=== PATIENT | female | born 1995 | race American Indian/Alaskan Native ===

== ENCOUNTER 2021-02-02 13:17 | Day surgery (SDC) | payer BC ==
--- NOTE | 2021-01-29 14:10 | Anesthesia Consultation ---
Anesthesia Consult and Med Hx Date of service: 02/02/21 - Airway Anesthetic Teeth Evaluation: Good ROM Head & Neck: Adequate Mental/Hyoid Distance: Adequate Mallampati Class: Class II - Pre-Operative Health Status ASA Pre-Surgery Classification: ASA2 Proposed Anesthetic Plan: General - Pulmonary Hx Asthma: Yes (Recently used inhalers. 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 Consider avoiding propofol
[2021-02-02] MEDS: MIDAZOLAM 2 MG/2 ML INJ IV PRN ×2 (12:20→13:28)
--- NOTE | 2021-02-02 12:50 | Anesthesia Day of Surgery ---
Anesthesia Day of Surgery - Day of Surgery Patient Examined: Yes Patient H&P Reviewed: Yes Patient is NPO: Yes
[~2021-02-02 13:17] MED LIST: ACETAMINOPHEN 500 MG TAB PO ONE; CELECOXIB 200 MG CAP PO NR; HYDROmorphone 1 MG/1 ML INJ IV PRN; LACTATED RINGERS 1,000 ML IV SCH; MAGNESIUM OXIDE 400 MG TAB PO ONE; MIDAZOLAM 2 MG/2 ML INJ IV NR; MIDAZOLAM 2 MG/2 ML INJ ONE; ONDANSETRON 4 MG/2 ML INJ IV PRN; SCOPOLAMINE TRANSDERMAL PATCH 72 HR TD NR; ceFAZolin/Water 2 GM/20 ML 2 GM/20 ML SYRINGE IV NR; oxyCODONE /ACETAMINOPHEN 5-325MG TAB PO PRN
[2021-02-02] MEDS ORDERED: BUPIVACAINE/PF (0.5%) 5 MG/1 ML 30 ML VIAL INFILTRATI ONE ×3 (13:22→15:59)
[2021-02-02] MEDS ORDERED: BUPIVACAINE/PF (0.5%) 5 MG/1 ML 10 ML VIAL INFILTRATI ONE (13:22)
[2021-02-02] MEDS ORDERED: ceFAZolin 1 GM VIAL ONE (13:23)
[2021-02-02] MEDS ORDERED: EPINEPHrine/PF 1 MG/1 ML INJ ONE ×2 (13:23→13:27)
[2021-02-02] MEDS ORDERED: METHYLENE BLUE 50 MG/10 ML AMP ONE (13:23)
[2021-02-02] MEDS ORDERED: SODIUM CHLORIDE 0.9% 250ML 250 ML ONE (13:27)
[2021-02-02] MEDS ORDERED: LIDOCAINE 1%/EPINEPHRINE 1:100,000 VIAL (20 ML) INFILTRATI ONE (13:27)
[2021-02-02] MEDS ORDERED: LIDOCAINE (1%) 10 MG/1 ML VIAL 20 ML MDV ONE (13:33)
[2021-02-02] MEDS ORDERED: KETAMINE/STERILE WATER 50 MG/ML SYRINGE ONE (13:44)
[2021-02-02] MEDS ORDERED: LIDOCAINE MPF (2%) 20 MG/1 ML VIAL 5 ML ONE (14:30)
[2021-02-02] MEDS ORDERED: ETOMIDATE 20 MG/10 ML INJ IV ONE (14:30)
[2021-02-02] MEDS ORDERED: dexAMETHasone 20 MG/5 ML VIAL ONE (14:45)
[2021-02-02] MEDS ORDERED: ONDANSETRON 4 MG/2 ML INJ ONE (14:45)
[2021-02-02] MEDS ORDERED: KETOROLAC 30 MG/1 ML INJ ONE (14:45)
[2021-02-02] MEDS ORDERED: fentaNYL 100 MCG/2 ML INJ ONE (14:52)
[2021-02-02] MEDS ORDERED: SODIUM CHLORIDE 0.9% IRR 1,500 ML BOTTLE IR ONE (15:39)
[2021-02-02] MEDS ORDERED: SODIUM CHLORIDE 0.9% 250 ML IVPB IV ONE (16:00)
[2021-02-02] MEDS ORDERED: LIDOCAINE (1%) 10 MG/1 ML VIAL 20 ML MDV INFILTRATI ONE (16:00)
[2021-02-02] MEDS ORDERED: METHYLENE BLUE 50 MG/10 ML AMP IV ONE (16:39)
[2021-02-02] MEDS ORDERED: EPINEPHrine/PF 1 MG/1 ML INJ IV ONE (16:55)
[2021-02-02] MEDS ORDERED: SODIUM CHLORIDE 0.9% 1000 ML 2,000 ML ONE (17:47)
--- NOTE | 2021-02-02 17:56 | Short Stay Summary ---
Short Stay Documentation Date of service: 02/02/21 - Allergies and Medications Current Medications: Allergies Beef Containing Products Allergy (Verified 02/01/21 12:08) Anaphylaxis egg Allergy (Verified 02/01/21 12:08) Anaphylaxis peanut Allergy (Verified 02/01/21 12:08) Anaphylaxis Pork/Porcine Containing Products Allergy (Verified 02/01/21 12:08) Anaphylaxis tree nut Allergy (Verified 02/01/21 12:08) Anaphylaxis chicken Allergy (Uncoded 01/28/21 14:19) Anaphylaxis dairy Allergy (Uncoded 01/28/21 14:19) Anaphylaxis seafood Allergy (Uncoded 01/28/21 14:19) Anaphylaxis Home Medications Medication Instructions Recorded Confirmed Last Taken Type Albuterol Mdi (or & Nicu Only) 2 puff PO Q4HR PRN 01/28/21 01/28/21 02/01/21 20:00 History [ProAir HFA Inhaler] Budesonide/Formoterol Fumarate 1 puff IH HS 01/28/21 01/28/21 02/01/21 20:00 History [Symbicort 160-4.5 Mcg Inhaler] Cetirizine HCl [ZyrTEC 10mg cap] 10 mg PO DAILY 01/28/21 01/28/21 02/01/21 20:00 History Montelukast [Singulair] 10 mg PO QPM 01/28/21 01/28/21 02/01/21 20:00 History Scopolamine [Transderm-Scop] 1 each TD PREOP patch 02/02/21 Unknown Rx Active Medications Celecoxib (Celecoxib 200 Mg Cap) 400 mg PO PREOP NR Stop: 02/02/21 23:59 Last Admin: 02/02/21 12:15 Dose: 400 mg Documented by: Hydromorphone HCl (Hydromorphone 1 Mg/1 Ml Inj) 0.5 mg IV Q10MIN PRN PRN Reason: Pain , Severe (7-10) Stop: 02/02/21 23:59 Cefazolin Sodium (Ancef/Sterile Water 2 Gm/20 Ml) 2 gm in 20 mls @ 80 mls/hr IV PREOP NR; Protocol Stop: 02/02/21 23:59 Lactated Ringer's (Lactated Ringers) 1,000 mls @ 125 mls/hr IV DIRECT GERARD Last Admin: 02/02/21 12:10 Dose: 125 mls/hr Documented by: Midazolam HCl (Midazolam 2 Mg/2 Ml Inj) 2 mg IV ONCE PRN PRN Reason: Anxiety Stop: 02/02/21 23:59 Last Admin: 02/02/21 13:28 Dose: 2 mg Documented by: Ondansetron HCl (Ondansetron 4 Mg/2 Ml Inj) 4 mg IV ONCE PRN PRN Reason: Nausea And Vomiting Stop: 02/02/21 23:59 Oxycodone/Acetaminophen (Oxycodone /Acetaminophen 5-325mg Tab) 1 tab PO ONCE PRN PRN Reason: Pain, Moderate (4-6) Scopolamine (Scopolamine Transdermal Patch 72 Hr) 1 each TD PREOP NR Stop: 02/02/21 20:00 Last Admin: 02/02/21 12:00 Dose: 1 each Documented by: - Brief post op/procedure progress note Date of procedure: 02/02/21 Pre-op diagnosis: Bilateral breast hypertropy Procedure: Bilateral Reduction Mammoplasty, Inferior Pedicle. No vertical scar technique Anesthesia: GETA Findings: Right breast 900 grams removed Left breast 880 grams removed Surgeon: ТАТЬЯНА CÁRDENAS (Dr. Justin as dental ceramist assistant) Estimated blood loss: 50-100ml Pathology: list (Right and Left breast tissue) Specimen disposition: to lab Condition: stable - Hospital course Hospital course: Discharge to home Short Stay Discharge Plan Follow up with: DANIELLA GLASGOW MD [Primary Care Provider] - 7 Days ТАТЬЯНА CÁRDENAS MD [Staff Physician] - 7 Days
--- NOTE | 2021-02-02 18:09 | Operative Report ---
Operative Report Operative Report: Date of procedure: February 02, 2021 Pre-operative diagnosis: Bilateral breast hypertrophy Post-operative diagnosis: Same Procedure name(s): Bilateral reduction mammoplasty with inferior pedicle technique and no vertical scar technique Surgeon: Yvon White M.D. Peanut Butter Maker: Dr. Justin Anesthesia: General EBL: 100 mL Specimen: Bilateral breast tissue Findings: Right breast 900 g removed with good vascularity to the pedicle. left breast 880 g removed with good vascularity to the pedicle Procedure: Before the surgery the patient was marked. She was sat upright. The sternal notch was marked. The left and right midclavicular ends were marked. The meridian was drawn from the midclavicular point through the left nipple. The submammary folds were marked. The submammary fold level was transposed onto the anterior surface of the breast and the new nipple positions were marked on the meridian. The new nipple position was marked as point A. Point B was marked 7 cm below point A. Point C was marked 7.5 cm from point A in the lower inner quadrant. A modified ellipse was made to include the submammary fold and points B & C. She was placed supine. An 11 cm wide inferior pedicles were designed. She was set upright and in the wisdom were judged for position and symmetry. She was taken to the operating room placed in supine position. She underwent smooth induction under general anesthesia. Arms were abducted 90 and placed on boards. Sequential compression devices were placed and a bear hugger warming device was placed on the lower body. The breasts were infiltrated with local anesthetic as described in the intraoperative nurse's notes. She was prepped and draped in usual sterile fashion. A 42 mm cookie-cutter was impressed upon the right areola. The lines were scored. The inferior pedicle was de-epithelialized. The medial and lateral dermal glandular triangles were excised. The superior breast flap was elevated. It was thin from deep to superficial leaving a 1-1/2 inch thick breast flap. Hemostasis was obtained with electrocautery. Construction vero were placed. The incision was closed in layers with 0 Vicryl superficial fascial system closure. The skin was closed with 3-0 Vicryl running intradermal sutures followed by 3-0 Monocryl running subcuticular stitch. The new areolar window was marked so the 6 o'clock position was 5 cm from the submammary fold along the meridian. She is sat upright to guest services lead for position and symmetry. She is placed supine. The areolar window was excised. The nipple was brought through the opening. It was noted to be vascular. It was sutured with 3-0 Vicryl buried interrupted sutures at the four cardinal points, followed by 3-0 Vicryl running intradermal sutures followed by 3-0 Monocryl running subcuticular stitch. Attention was turned to the left breast mound and the procedure was repeated in a similar fashion. A total of 900 grams were removed from the right breast and 880 grams were removed from the left breast. Aquacell dressings were applied. A tube top was place. Patient tolerated procedure well. She was awakened and taken to recovery room in satisfactory condition.
[2021-02-02 18:54] VITALS: BP 110/60
== END 2021-02-02 13:18 | disposition home or self-care (01) ==
LOC: OR 13:17
PROVIDERS: ATTEND Plastic Surgery
DX: N62 Hypertrophy of breast (principal); Z20.822 Contact with and (suspected) exposure to COVID-19; G43.909 Migraine, unspecified, not intractable, without status migrainosus; J45.909 Unspecified asthma, uncomplicated; K21.9 Gastro-esophageal reflux disease without esophagitis; Z88.8 Allergy status to other drugs, medicaments and biological substances; Z91.013 Allergy to seafood; Z91.010 Allergy to peanuts; Z79.899 Other long term (current) drug therapy; Z72.89 Other problems related to lifestyle; Z98.890 Other specified postprocedural states
CPT/HCPCS: 19318; 81025; 88305; J0171; J0690; J1100; J1885; J2250; J2405; J3010; J3490; J7030; J7050; J7120; Q9968; U0003